=== PATIENT | female | born 1970 | race Caucasian/White ===

== ENCOUNTER 2017-04-21 08:51 | Emergency (ER) | payer BC ==
[~2017-04-21] VITALS: Ht 172.7 cm; Wt 99.8 kg
[~2017-04-21 08:51] MED LIST: FARXIGA5 MG PO; METFORMIN1000 MG PO
--- OUTSIDE RECORDS SUMMARY | 2017-04-21 08:57 | External Medical Summary Rpt | CCD ---
Author Author , ILYAH PELLETIER Address Unknown Phone [email or web address] Purpose Continuity of Care Document - through 2016
--- OUTSIDE RECORDS SUMMARY | 2017-04-21 08:57 | External Medical Summary Rpt | CCD ---
Author Author [employer] Organization [employer] Address Unknown Phone Unavailable Purpose Continuity of Care Document - through 2016
--- OUTSIDE RECORDS SUMMARY | 2017-04-21 08:57 | External Medical Summary Rpt ---
Author Author LIYAH Yu, [employer] Organization [employer] Address Unknown Phone Unavailable
--- OUTSIDE RECORDS SUMMARY | 2017-04-21 08:57 | External Medical Summary Rpt | CCD ---
Demographics Preferred Language Syrian Marital Status Unknown Orthodox Affiliation Unknown Race Unknown Ethnic Group Unknown Author Author , LIYAH PELLETIER Address Unknown Phone Immunization No patient found.
--- OUTSIDE RECORDS SUMMARY | 2017-04-21 08:57 | External Medical Summary Rpt | CCD ---
Demographics Preferred Language Nauruan Marital Status Unknown Mandaen Affiliation Unknown Race Unknown Ethnic Group Unknown Author Author , LIYAH PELLETIER Address Unknown Phone Immunization No patient found.
--- OUTSIDE RECORDS SUMMARY | 2017-04-21 08:57 | External Medical Summary Rpt | CCD ---
Author Author , LIYAH PELLETIER Address Unknown Phone [email or web address] Purpose Continuity of Care Document - through 2016
--- NOTE | 2017-04-21 09:28 | Urgent Treatment Center Report ---
History of Present Issue Date/Time Seen by Provider 04/21/17918 Visit Reason Pt arrived:Walked Presenting Problem:COUGH, CONGESTION, HEADACHE, FEVER Location if Accident: Onset of symptoms date/time:/ or onset unknown for:MEDICAL HX UNKNOWN Have you (or family members/close friends) recently traveled outside the [place]? N If Yes, where/when: Have you had exposure to infectious disease within the past month? TB? Other? Specify: Patient states that she is having flu like symptoms State that she is having cough, congestion, body aches fever headache and chills. States that her throat is sore and feels swollen. States that she feels like there is something draining in the back of her throat State that she is not coughing anything up State that she has been in the bed the last four days and not got any better ALLERGIES Coded Allergies: Penicillins (04/21/17) Home Medications Active Scripts METFORMIN HCL (Metformin) 1,000 MG PO BID 30 Days Prov: 11/07/14 Reported Medications METFORMIN HCL (Metformin) 1,000 MG PO DAILY Dapagliflozin Propanediol (Farxiga) 5 MG PO DAILY History Medical History General CAD? No Angina: No [place]: No Hypertension? Yes Hyperlipidemia? Yes CHF? No COPD? No Asthma? No Anemia? No Hernia? No Thyroid Problems? No Hypothyroidism? No CVA? No Seizures? No Diabetes? Yes Insulin Dependent: No Insulin Pump: No Home FSBS? No Renal Insuffiency? No UTI? No Stones? No GB Disease: No Nephritic Syndrome? No Asplenia? No Hepatitis? No Sickle Cell Disease? No Arthritis? Yes Cataracts? No Glaucoma? No MRSA? No TB? No Cancer? No Immunization HX DT/Tetanus > 10 Years Ago Surgical Hx Previous Surgery?N Social History Smoking Hx Smoker: Never Smoker Tobacco: No Alcohol Alcohol: No Review of Systems All Other Systems Reviewed and Negative Constitutional chills, fever ENT nose congestion, throat pain, throat swelling. Respiratory cough, denies shortness of breath, denies wheezing Musculoskeletal joint pain Psychiatric/Neurological headache Physical Exam Vital Signs Vital Signs Date Time Temp Pulse Resp B/P Pulse O2 O2 Flow FiO2 Ox Delivery Rate 04/21 0907 99.6 91 20 139/98 95 General Appearance Patient appears ill sitting on exam table Ear, Nose, Throat sinus pain/drainage, nasal congestion, tonsillar swelling, throat red, swollen with drainage noted tenderness noted maxillary sinuses tender when palpated Respiratory Status Yes: trachea midline, chest symmetrical, non tender chest. No: respiratory distress. Lung Sounds bilateral: normal breath sounds, lungs clear. Cardiovascular normal exam, regular rate/rhythm Neurologic alert, normal exam, oriented x 3 Medical Decision Making LABS/Meds/Orders Pt receiving controlled substance in ED? No Results/Orders Laboratory Tests 04/21/17927: Influenza Type A Ag NOT DETECTED, Influenza Type B Ag NOT DETECTED, Group A Strep Screen NOT DETECTED Current Medication Orders Sig/Lito Start time Last Medication Dose Route Stop Time Status Admin Methylprednisolone 125 MG ONCE ONE 04/21 945 DC Sodium Succinate IM 04/21 946 Orders Procedure Date/time Status [facility] STREP SCREEN 04/21 928 Complete [facility] FLU A,B 04/21 928 Complete [facility] FLU A,B 04/21 921 Active Progress [facility] Progress Notes Comment Patient state that she is allergic to Penicillin however has taken cefdinir/ cephosporins without difficulty or reaction Departure Departure Time of Disposition 941 Disposition DC Home or Self Care(routine) Clinical Impression Primary Impression: Sinusitis Qualifiers: Sinusitis location: maxillary Chronicity: unspecified Qualified Code: J32.0 - Chronic maxillary sinusitis Secondary Impressions: Upper respiratory infection Qualifiers: URI type: unspecified URI Qualified Code: J06.9 - Acute upper respiratory infection, unspecified Condition STABLE Referrals Paulie CORONADO,A.C. (Family): 2 Days-Call Office Patient Instructions Cough, DI for Sinusitis, Sinus Headache, Sinusitis, Sore Throat Additional Instructions * Monitor Temp. Tylenol and/or Ibuprofen as needed. ER if fever is no less than 101 despite alternating Tylenol and Ibuprofen * Encourage fluids, water, Gatorade, powerade, pedialyte if /toddler/or child * Warm salt water gargles for throat irritation *Warm fluids *Sore throat lozenges *Sleep elevated *humidifier or vaporizer Lots of rest Increase fluids, water, Gatorade, powerade *Flonase 2 sprays each nostril daily but may take 2-3 days to notice improvement with it *Bromfed may cause drowsiness. Know how it effect you or your child. Before driving, caring for small children or sending your child to school *Your throat swab was sent to lab for culture. Those results area typically sent to your primary care physician. Be sure to follow up in 2-3 days if no improvement so they can review those results and treat if necessary If you dont have primary care I recommend you get one, but in the mean time you will have to return to a walk in clinic Follow up IMMEDIATELY for new or worsening of symptoms OR no noticeable improvement over the next 48-72 hours. 911 immediately for any life threatening symptoms such as chest pain or difficulty breathing Discharge Counseling Counseled pt/family regarding diagnosis, medications/RX, home care, follow up needs Prescriptions Current Visit Scripts CEFDINIR (Cefdinir) 300 MG PO BID #20 CAP 300mg twice daily for 10 days Benzonatate (Tessalon Perle) 100 MG PO TID #15 SGL Fluticasone Propionate (Flonase 50 Mcg Nasal [place]) 2 SPRAY NA DAILY #1 BOT at 0947
--- NOTE | 2017-04-21 09:28 | Urgent Treatment Center Report ---
History of Present Issue Date/Time Seen by Provider 04/21/17918 Visit Reason Pt arrived:Walked Presenting Problem:COUGH, CONGESTION, HEADACHE, FEVER Location if Accident: Onset of symptoms date/time:/ or onset unknown for:MEDICAL HX UNKNOWN Have you (or family members/close friends) recently traveled outside the [place]? N If Yes, where/when: Have you had exposure to infectious disease within the past month? TB? Other? Specify: Patient states that she is having flu like symptoms State that she is having cough, congestion, body aches fever headache and chills. States that her throat is sore and feels swollen. States that she feels like there is something draining in the back of her throat State that she is not coughing anything up State that she has been in the bed the last four days and not got any better ALLERGIES Coded Allergies: Penicillins (04/21/17) Home Medications Active Scripts METFORMIN HCL (Metformin) 1,000 MG PO BID 30 Days Prov: 11/07/14 Reported Medications METFORMIN HCL (Metformin) 1,000 MG PO DAILY Dapagliflozin Propanediol (Farxiga) 5 MG PO DAILY History Medical History General CAD? No Angina: No [place]: No Hypertension? Yes Hyperlipidemia? Yes CHF? No COPD? No Asthma? No Anemia? No Hernia? No Thyroid Problems? No Hypothyroidism? No CVA? No Seizures? No Diabetes? Yes Insulin Dependent: No Insulin Pump: No Home FSBS? No Renal Insuffiency? No UTI? No Stones? No GB Disease: No Nephritic Syndrome? No Asplenia? No Hepatitis? No Sickle Cell Disease? No Arthritis? Yes Cataracts? No Glaucoma? No MRSA? No TB? No Cancer? No Immunization HX DT/Tetanus > 10 Years Ago Surgical Hx Previous Surgery?N Social History Smoking Hx Smoker: Never Smoker Tobacco: No Alcohol Alcohol: No Review of Systems All Other Systems Reviewed and Negative Constitutional chills, fever ENT nose congestion, throat pain, throat swelling. Respiratory cough, denies shortness of breath, denies wheezing Musculoskeletal joint pain Psychiatric/Neurological headache Physical Exam Vital Signs Vital Signs Date Time Temp Pulse Resp B/P Pulse O2 O2 Flow FiO2 Ox Delivery Rate 04/21 0907 99.6 91 20 139/98 95 General Appearance Patient appears ill sitting on exam table Ear, Nose, Throat sinus pain/drainage, nasal congestion, tonsillar swelling, throat red, swollen with drainage noted tenderness noted maxillary sinuses tender when palpated Respiratory Status Yes: trachea midline, chest symmetrical, non tender chest. No: respiratory distress. Lung Sounds bilateral: normal breath sounds, lungs clear. Cardiovascular normal exam, regular rate/rhythm Neurologic alert, normal exam, oriented x 3 Medical Decision Making LABS/Meds/Orders Pt receiving controlled substance in ED? No Results/Orders Laboratory Tests 04/21/17927: Influenza Type A Ag NOT DETECTED, Influenza Type B Ag NOT DETECTED, Group A Strep Screen NOT DETECTED Current Medication Orders Sig/Lito Start time Last Medication Dose Route Stop Time Status Admin Methylprednisolone 125 MG ONCE ONE 04/21 945 DC Sodium Succinate IM 04/21 946 Orders Procedure Date/time Status [facility] STREP SCREEN 04/21 928 Complete [facility] FLU A,B 04/21 928 Complete [facility] FLU A,B 04/21 921 Active Progress [facility] Progress Notes Comment Patient state that she is allergic to Penicillin however has taken cefdinir/ cephosporins without difficulty or reaction Departure Departure Time of Disposition 941 Disposition DC Home or Self Care(routine) Clinical Impression Primary Impression: Sinusitis Qualifiers: Sinusitis location: maxillary Chronicity: unspecified Qualified Code: J32.0 - Chronic maxillary sinusitis Secondary Impressions: Upper respiratory infection Qualifiers: URI type: unspecified URI Qualified Code: J06.9 - Acute upper respiratory infection, unspecified Condition STABLE Referrals Paulie CORONADO,A.C. (Family): 2 Days-Call Office Patient Instructions Cough, DI for Sinusitis, Sinus Headache, Sinusitis, Sore Throat Additional Instructions * Monitor Temp. Tylenol and/or Ibuprofen as needed. ER if fever is no less than 101 despite alternating Tylenol and Ibuprofen * Encourage fluids, water, Gatorade, powerade, pedialyte if /toddler/or child * Warm salt water gargles for throat irritation *Warm fluids *Sore throat lozenges *Sleep elevated *humidifier or vaporizer Lots of rest Increase fluids, water, Gatorade, powerade *Flonase 2 sprays each nostril daily but may take 2-3 days to notice improvement with it *Bromfed may cause drowsiness. Know how it effect you or your child. Before driving, caring for small children or sending your child to school *Your throat swab was sent to lab for culture. Those results area typically sent to your primary care physician. Be sure to follow up in 2-3 days if no improvement so they can review those results and treat if necessary If you dont have primary care I recommend you get one, but in the mean time you will have to return to a walk in clinic Follow up IMMEDIATELY for new or worsening of symptoms OR no noticeable improvement over the next 48-72 hours. 911 immediately for any life threatening symptoms such as chest pain or difficulty breathing Discharge Counseling Counseled pt/family regarding diagnosis, medications/RX, home care, follow up needs Prescriptions Current Visit Scripts CEFDINIR (Cefdinir) 300 MG PO BID #20 CAP 300mg twice daily for 10 days Benzonatate (Tessalon Perle) 100 MG PO TID #15 SGL Fluticasone Propionate (Flonase 50 Mcg Nasal [place]) 2 SPRAY NA DAILY #1 BOT at 0947
[2017-04-21 09:42] LABS: UTC STREP SCREEN NOT DETECTED (NOTDETECTED)
[2017-04-21] MEDS ORDERED: FLONASE 50 MCG16 GM (09:46)
[2017-04-21] MEDS ORDERED: OMNICEF 300 MG300 MG PO (09:46)
[2017-04-21] MEDS ORDERED: TESSALON PERLE100 M1 PO (09:46)
[2017-04-21 09:57] VITALS: BP 132/88
== END 2017-04-21 09:58 | disposition home or self-care (01) ==
LOC: UTC 08:51
PROVIDERS: Nurse Practitioner
DX: J32.0 Chronic maxillary sinusitis (principal); J06.9 Acute upper respiratory infection, unspecified; E11.9 Type 2 diabetes mellitus without complications; Z79.84 Long term (current) use of oral hypoglycemic drugs; I10 Essential (primary) hypertension; Z88.0 Allergy status to penicillin